=== PATIENT | male | born 1995 | race Caucasian/White ===

== ENCOUNTER 2022-09-22 09:35 | Day surgery (SDC) | payer OTHER ==
[2022-09-22 10:08] VITALS: RESP 14; TEMP 98.3
--- NOTE | 2022-09-22 10:47 | US ---
ULTRASOUND GUIDED FNA THYROID BIOPSY: CLINICAL HISTORY: Left thyroid nodule FINDINGS: The procedure was explained to the patient. The risks, complications, benefits and alternatives were discussed and any questions were answered. Informed consent was obtained. Patient was placed supin e on the ultrasound table and prepped and draped in the usual sterile fashion. Utilizing a 25 gauge needle, five passes were made into the left thyroid nodule. Patient was stable throughout the procedure. Pathology is pending. All elements of maximal barrier technique were utilized. IMPRESSION: 1. Successful ultrasound guided FNA thyroid biopsy.
[2022-09-22 10:54] VITALS: BP 137/78; PULSE 74
== END 2022-09-22 10:50 | disposition home or self-care (01) ==
LOC: RADPROMAIN 09:35
PROVIDERS: ATTEND Surgery
DX: E07.89 Other specified disorders of thyroid (principal)
CPT/HCPCS: 10005; 88173; 88305